=== PATIENT | female | born 1970 | race Caucasian/White ===

== ENCOUNTER 2017-02-01 21:03 | Emergency (ER) | payer OTHER ==
--- NOTE | ~2017-02-01 | CR72 ---
[facility] A Service of [facility] & [facility] RADIOLOGY TEXT RESULTS PATIENT: MITALI WOODALL LOCATION: [facility] : 66 UNIT #: [id number] AGE: [address]: Ephraim Baptiste MD SEX: F ORDER DR: [id number] [facility] [address] [place], [place] [address] [id number] E MR#: [id number] Acc #: [id number] NAME: MITALI WOODALL : 1970 SEX: F STUDY DATE/TIME: 02/01/2017 21:49 UNIT: [facility] ROOM: STUDY DESCRIPTION: CR Chest Single View Portable Attending Physician: Ephraim Baptiste M.D. Ordering Physician: Ephraim Baptiste M.D. Primary Care Physician: No Primary Care Physician MEDICAL IMAGING REPORT This report is preliminary unless electronic signature is present EXAM Chest x-ray, 02/01/2017. HISTORY 46-year-old female in the ED with acute mental status changes/confusion, lethargy. Symptoms began today prior to arrival. TECHNIQUE AP portable upright chest images. FINDINGS The heart size and pulmonary vascularity are within normal limits. The lungs appear clear. No visible pulmonary infiltrate or pleural effusion. IMPRESSION Negative chest. Dictated by... Bertin Reddy M.D. THIS IS AN ELECTRONICALLY VERIFIED REPORT Bertin Reddy M.D. at 02/02/2017 5:25 AM Eliane TD: 02/01/2017 23:48 JOB #: [id number] MEDICAL IMAGING REPORT Page 1 of 1 COPY
--- NOTE | ~2017-02-01 | EKG ---
PATIENT: MITALI WOODALL UNIT #: [id number] Ventricular Rate: 52 BPM Atrial Rate: 52 BPM P-R Interval: 152 ms QRS Duration: 70 ms Q-T Interval: 468 ms QTC Calculation(Bezet): 435 ms P [place]: 76 degrees Calculated R [place]: 44 degrees Calculated T [place]: 59 degrees Diagnosis Line: Sinus bradycardia Diagnosis Line: Low voltage QRS Diagnosis Line: Nonspecific T wave abnormality Diagnosis Line: Abnormal ECG Diagnosis Line: When compared with ECG of 08-DEC-2015 13:23, Diagnosis Line: Nonspecific T wave abnormality now evident in Diagnosis Line: Anterior leads Diagnosis Line: Confirmed by KRYSTLE LEAHY MD ([id number]) on 02/04/2017 Diagnosis Line: 10:43:45 PM INTERPRETING MD: TOSIN AARON
[2017-02-01 22:17] LABS: URINE SOURCE CATH
[2017-02-01 22:21] LABS: BASOPHIL# 0.1 X10e3 (0-0.3); BASOPHIL% 0.8 % (0-2.5); EOSINOPHIL# 0.1 X10e3 (0-0.7); EOSINOPHIL% 0.7 % (0.0-7.0); HEMOGLOBIN 13.6 gm/dL (12.0-16.0); LYMPHOCYTE# 3.4 X10e3 (1.0-3.5); LYMPHOCYTE% 31.1 % (17.0-45.0); MEAN CELL VOLUME 90.4 FL (83-96); MEAN CORPUSCULAR HEMOGLOBIN 30.1 PG (28-34); MEAN CORPUSCULAR HGB CONC 33.2 g/dL (30-36); MEAN PLATELET VOLUME 7.5 FL (6.5-11.5); MONOCYTE% 9.3 % (3.0-12.0); NEUTROPHIL# 6.4 X10e3 (1.5-7.1); NEUTROPHIL% 58.1 % (40-75); PLATELET COUNT 249 X10e3 (140-420); RED BLOOD COUNT 4.53 X10e (3.90-5.30); RED CELL DISTRIBUTION WIDTH 14.4 % (11.0-15.5); WHITE BLOOD COUNT 10.9 X10e3 (4.0-10.5)
[2017-02-01 22:22] LABS: URINE APPEARANCE CLOUDY; URINE BILIRUBIN NEG (NEG); URINE BLOOD NEG (NEG); URINE COLOR YELLOW; URINE GLUCOSE NEG (NEG); URINE KETONE NEG (NEG); URINE LEUKOCYTE ESTERASE TRACE (NEG); URINE NITRATE NEG (NEG); URINE PH 5.5 (5-8); URINE PROTEIN TRACE (NEG); URINE SPECIFIC GRAVITY 1.029 (1.003-1.035); URINE UROBILINOGEN 0.2 MG/DL (NEG)
[2017-02-01 22:24] LABS: DIFF IND NO
[2017-02-01 22:25] LABS: URBCS1 AUWI 0-2 /[HPF] (0-2); URINE BACTERIA AUWI NEG (NEGATIVE); URINE SQUAMOUS EPITHELIAL CELL FEW /[HPF]
[2017-02-01 22:33] LABS: AMPHETAMINE POS (NEG); BARBITURATES NEG (NEG); BENZODIAZEPINES NEG (NEG); COCAINE POS (NEG); MARIJUANA POS (NEG); OPIATES NEG (NEG); TRICYCLIC ANTIDEPRESSANTS NEG (NEG); U METHADONE NEG (NEG)
[2017-02-01 22:39] LABS: CULTURE INDICATED? NO
[2017-02-01 22:49] LABS: ACETAMINOPHEN <10 ug/mL; ALCOHOL BLOOD <5 mg/dL (0); BLOOD UREA NITROGEN 14 mg/dL (9-23); BUN/CREATININE RATIO 11.66; CALCIUM SERUM 9.2 mg/dL (8.4-10.2); CARBON DIOXIDE 26 mmol/L (22-31); CHLORIDE 106 mmol/L (100-111); CREATININE SERUM 1.2 mg/dL (0.6-1.4); GLOM FILT RATE Estimated 53.4 mL/min (>60); GLUCOSE FASTING 115 mg/dL (70-110); POTASSIUM 3.3 mmol/L (3.5-5.1); SALICYLATE <4.0 mg/dL; SODIUM 137 mmol/L (135-145)
== END 2017-02-02 07:30 | disposition home or self-care (01) ==
LOC: CED 21:03
PROVIDERS: Emergency Medicine
DX: F19.10 Other psychoactive substance abuse, uncomplicated (principal); Z88.0 Allergy status to penicillin
CPT/HCPCS: 36415; 71010; 80048; 80307; 81003; 82947; 84703; 85025; 93005; 96374; 99285; G0480